=== PATIENT | female | born 1965 | race Caucasian/White ===

== ENCOUNTER 2021-09-16 18:52 | Emergency (ER) | payer OTHER ==
[2021-09-16] MEDS ORDERED: Lidocaine 2% Viscous Solution 100 ML Bottle ONE (19:47)
[2021-09-16] MEDS ORDERED: Acetaminophen/HYDROcodone 325-5 MG Tab PO ONE (19:47)
[2021-09-16] MEDS ORDERED: Lidocaine 4% Top Soln LTA 4 ML Syringe Kit TOP ONE (19:50)
[2021-09-16] MEDS ORDERED: Bacitracin Oint 1 GM U/D Packet TOP ONE (19:50)
[2021-09-16] MEDS ORDERED: Lidocaine 4% Top Soln 50 ML Bottle ONE (19:58)
[2021-09-16] MEDS ORDERED: Lidocaine 4% Top Soln 50 ML Bottle TOP ONE ×2 (20:20→20:23)
== END 2021-09-16 20:45 | disposition home or self-care (01) ==
LOC: JP.ED 18:52
DX: T22.211A Burn of second degree of right forearm, initial encounter (principal); Z91.013 Allergy to seafood; X03.0XXA Exposure to flames in controlled fire, not in building or structure, initial encounter
CPT/HCPCS: 99283; A9270